=== PATIENT | female | born 1975 | race Native Hawaiian/Other Pacific Islander ===

== ENCOUNTER 2018-02-07 12:51 | Outpatient (CLI) | payer BC | END 2018-02-07 12:55 | disposition short-term general hospital (02) | LOC: AMB 12:51 | DX: S06.300A Unspecified focal traumatic brain injury without loss of consciousness, initial encounter (principal); X58.XXXA Exposure to other specified factors, initial encounter; Y93.89 Activity, other specified; Y92.89 Other specified places as the place of occurrence of the external cause | CPT/HCPCS: A0425; A0427 ==

== ENCOUNTER 2018-05-29 14:45 | Outpatient (CLI) | payer BC | END 2018-05-29 23:33 | disposition home or self-care (01) | LOC: MAMMO 14:45 | DX: Z12.31 Encounter for screening mammogram for malignant neoplasm of breast (principal) ==

== ENCOUNTER 2019-06-01 14:51 | Outpatient (CLI) | payer BC | END 2019-06-01 22:27 | disposition home or self-care (01) | LOC: MAMMO 14:51 | DX: Z12.31 Encounter for screening mammogram for malignant neoplasm of breast (principal) ==

== ENCOUNTER 2020-06-02 15:01 | Outpatient (CLI) | payer BC | END 2020-06-02 23:37 | disposition home or self-care (01) | LOC: MAMMO 15:01 | DX: Z12.31 Encounter for screening mammogram for malignant neoplasm of breast (principal) ==

== ENCOUNTER 2021-06-18 15:21 | Outpatient (CLI) | payer BC | END 2021-06-18 20:20 | disposition home or self-care (01) | LOC: MAMMO 15:21 | PROVIDERS: ATTEND Obstetrics & Gynecology | DX: Z12.31 Encounter for screening mammogram for malignant neoplasm of breast (principal) ==

== ENCOUNTER 2021-07-09 13:31 | Outpatient (CLI) | payer BC | END 2021-07-09 19:03 | disposition home or self-care (01) | LOC: MAMMO 13:31 | PROVIDERS: ATTEND Obstetrics & Gynecology | DX: R92.2 Inconclusive mammogram (principal) ==

== ENCOUNTER 2022-06-21 15:19 | Outpatient (CLI) | payer BC | END 2022-06-21 21:00 | disposition home or self-care (01) | LOC: MAMMO 15:19 | PROVIDERS: ATTEND Obstetrics & Gynecology | DX: Z12.31 Encounter for screening mammogram for malignant neoplasm of breast (principal) ==

== ENCOUNTER 2023-06-27 15:19 | Outpatient (CLI) | payer BC | END 2023-06-27 18:58 | disposition home or self-care (01) | LOC: MAMMO 15:19 | PROVIDERS: ATTEND Obstetrics & Gynecology | DX: Z12.31 Encounter for screening mammogram for malignant neoplasm of breast (principal) ==